=== PATIENT | male | born 1980 | race Caucasian/White ===

== ENCOUNTER 2020-01-13 18:13 | Inpatient (IN) | payer MEDICAID, OTHER ==
[~2020-01-13] VITALS: Ht 162.6 cm; Wt 81.6 kg
[2020-01-13 18:23] VITALS: BP 137/68
[2020-01-13] MEDS ORDERED: ACETAMINOPHEN EXTRA STRENGTH 500 MG TAB PO ONE (18:25)
--- NOTE | 2020-01-13 19:10 | NUR ---
came in with c/o fever, sorethroat, abd cramping for a week, with 10/10 pain level
[2020-01-13] MEDS ORDERED: cefTRIAXone 1,000 MG in LIDOCAINE MPF 1% 2.1 ML IM ONE (19:45)
[2020-01-13] MEDS ORDERED: AZITHROMYCIN 1,000 MG in DEXTROSE 5% 500 ML IV ONE (19:45)
--- NOTE | 2020-01-13 20:00 | NUR ---
all results back and noted by PA and for admission
[2020-01-13 20:14] LABS: BASOPHILS # (AUTO) 0.1 K/uL (0.00-0.22); BASOPHILS % (AUTO) 1.4 % (0.0-2.0); HEMATOCRIT 43.9 % (36-52); HEMOGLOBIN 15.1 g/dL (12.0-18.0); LYMPHOCYTES % (AUTO) 16.5 % (20.5-51.1); MEAN CORPUSCULAR HEMOGLOBIN 30 pg (27-31); MEAN CORPUSCULAR HGB CONC 34 g/dL (33-37); MEAN CORPUSCULAR VOLUME 87.5 fL (80-94); MONOCYTES # (AUTO) 0.4 K/uL (0.8-1.0); MONOCYTES % (AUTO) 6.3 % (1.7-9.3); NEUTROPHILS # (AUTO) 4.8 K/uL (1.8-7.7); NEUTROPHILS % (AUTO) 75.8 % (42.2-75.2); PLATELET COUNT (AUTO) 175 K/uL (140-450); RED BLOOD CELL COUNT(AUTO) 5.02 MIL/uL (4.20-6.10); RED CELL DISTRIBUTION WIDTH 13.2 % (11.6-13.7); WHITE BLOOD COUNT (AUTO) 6.3 K/uL (4.8-10.8)
--- NOTE | 2020-01-13 20:19 | NUR ---
Patient will be admitted to care of dr MAZA. Admited to MS. Will go to room 126 B. Belongings list completed. Report to AIDEN BEGUM
[2020-01-13] MEDS ORDERED: ACETAMINOPHEN 325 MG TAB PO PRN (20:20)
[2020-01-13] MEDS ORDERED: DOCUSATE SODIUM 100 MG GELCAP PO PRN (20:20)
[2020-01-13] MEDS ORDERED: HYDROcodone/APAP 7.5/325 MG 1 TAB PO PRN (20:20)
[2020-01-13] MEDS ORDERED: ONDANSETRON 4 MG/2 ML VIAL IM/IVP PRN (20:20)
[2020-01-13 20:31] LABS: ALBUMIN 3.5 g/dL (3.4-5.0); ANION GAP 15.1 (8-16); CARBON DIOXIDE 24.4 mmol/L (21-32); CREATININE 0.8 mg/dL (0.6-1.3); POTASSIUM 3.5 mmol/L (3.5-5.1); TOTAL BILIRUBIN 0.8 mg/dL (0.0-1.0)
[2020-01-13] MEDS ORDERED: AZITHROMYCIN 500 MG INJ VIAL IV ONE (20:32)
[2020-01-13] MEDS ORDERED: cefTRIAXone 1,000 MG VIAL ONE (20:33)
[2020-01-13 21:18] LABS: PROTHROMBIN TIME 10.3 secs (10.8-13.4)
--- NOTE | 2020-01-13 21:22 | NUR ---
Pt report given to AIDEN BEGUM. Transfer of care at this time.
[2020-01-13 21:30] LABS: FREE T4 (FREE THYROXINE) 1.37 ng/dL (0.76-1.46); MAGNESIUM 2.1 mg/dL (1.8-2.4); PHOSPHORUS 2.5 mg/dL (2.5-4.9); THYROID STIMULATING HORMONE 1.32 uIU/mL (0.34-3.74)
--- NOTE | 2020-01-13 21:30 | NUR ---
ADMITTED 39 YEARS OLD MALE FROM ER VIA WHEELCHAIR. DX: PNEUMONIA CC: FEVER AND COUGH. SEE NURSING ADMISSION ASSESSMENT AND HISTORY. ORIENTED TO ROOM AND UNIT ROUTINES. CARE BOARD STARTED. PLAN OF CARE DISCUSSED WITH PATIENT, VERBALIZED UNDERSTANDING WELL. CALL LIGHT WITHIN REACH.
[2020-01-13] MEDS ORDERED: ALBUTEROL SULFATE/IPRATROPIU 3 ML SOL IH PRN (21:40)
[2020-01-13] MEDS ORDERED: KCL 20 MEQ/WATER INJ PREMIX 200 ML IV PRN (22:35)
[2020-01-13] MEDS: NACL 0.9% 1,000 ML IV SCH (23:19)
--- NOTE | 2020-01-14 00:12 | NUR ---
VITAL SIGNS STABLE. AFEBRILE. CALL LIGHT WITHIN REACH. NO COMPLAINS. NPO AFTER MIDNIGHT FOR ULTRASOUND ABDOMEN IN AM.
[2020-01-14 00:59] VITALS: BP 116/68
[2020-01-14] MEDS: ALBUTEROL SULFATE/IPRATROPIU 3 ML SOL IH SCH ×4 (01:56→19:55)
--- NOTE | 2020-01-14 02:18 | NUR ---
RECEIVED PATIENT ON ROOM AIR,PULSE OX SAT 96%. SCHEDULED BREATHING TREATMENT ADMINISTERED. TOLERATED TX WELL WITHOUT ADVERSE SIDE EFFECTS. PT MADE AWARE OF ORDERED MEDICATION FREQUENCY AND INSTRUCTED TO CALL NEEDED FOR SOB. INCENTIVE SPIROMETRY EDUCATION TAUGHT. PATIENT PERFORMED RETURN DEMONSTRATION WITH GOOD EFFORT. WILL NEED EDUCATIONAL REINFORCEMENT AND ENCOURAGEMENT. NO ACUTE RESPIRATORY DISTRESS NOTED AT THIS TIME. WILL CONTINUE TO MONITOR. Addendum: 01/14/20 at 0222 by Nava Tucker RT PT INSTRUCTED TO OBTAIN SPUTUM SAMPLE IN CUP PROVIDED AT BEDSIDE. PT STATES HE DOES NOT HAVE A COUGH OR ANY SPUTUM AT THIS TIME.
--- NOTE | 2020-01-14 04:30 | NUR ---
ASLEEP. NO COMPLAINS. CALL LIGHT WITHIN REACH.
[2020-01-14] MEDS: NACL 0.9% 1,000 ML IV SCH ×4 (05:44→23:43)
[2020-01-14 06:23] LABS: ANION GAP 13.9 (8-16); CARBON DIOXIDE 25.5 mmol/L (21-32); CREATININE 0.6 mg/dL (0.6-1.3); POTASSIUM 3.4 mmol/L (3.5-5.1)
[2020-01-14 06:52] LABS: BASOPHILS % (AUTO) 0.7 % (0.0-2.0); EOSINOPHILS % (AUTO) 0.2 % (0.0-4.0); HEMATOCRIT 40.2 % (36-52); HEMOGLOBIN 13.6 g/dL (12.0-18.0); LYMPHOCYTES % (AUTO) 19.8 % (20.5-51.1); MEAN CORPUSCULAR HEMOGLOBIN 30 pg (27-31); MEAN CORPUSCULAR HGB CONC 34 g/dL (33-37); MEAN CORPUSCULAR VOLUME 88.1 fL (80-94); MONOCYTES # (AUTO) 0.6 K/uL (0.8-1.0); MONOCYTES % (AUTO) 12.2 % (1.7-9.3); NEUTROPHILS # (AUTO) 3.4 K/uL (1.8-7.7); NEUTROPHILS % (AUTO) 67.1 % (42.2-75.2); PLATELET COUNT (AUTO) 185 K/uL (140-450); RED BLOOD CELL COUNT(AUTO) 4.57 MIL/uL (4.20-6.10); RED CELL DISTRIBUTION WIDTH 12.9 % (11.6-13.7); WHITE BLOOD COUNT (AUTO) 5.1 K/uL (4.8-10.8)
--- NOTE | 2020-01-14 07:15 | NUR ---
ENDORSED CARE AT BEDSIDE WITH CADEN BEGUM, PATIENT IN STABLE CONDITION.
--- NOTE | 2020-01-14 07:16 | NUR ---
RECEIVED REPORT FROM HOIST WORKER NURSE AIDEN FOR CONTINUITY OF CARE. PT IN STABLE CONDITION. RESPIRATIONS EVEN AND UNLABORED. IV INTACT AND PATENT. SAFETY MEASURES IN PLACE. BED IN LOW POSITION. CALL LIGHT AT BEDSIDE. WILL CONTINUE TO MONITOR.
[2020-01-14 08:00] VITALS: BP 117/71
--- NOTE | 2020-01-14 08:22 | NUR ---
PATIENT HAS BEEN SCREENED AND CATEGORIZED MODERATE NUTRITION RISK. PATIENT WILL BE SEEN WITHIN 3-5 DAYS OF ADMISSION. 01/16/20 01/18/[address]
--- NOTE | 2020-01-14 08:30 | NUR ---
US AT BEDSIDE AT THIS TIME. PT TOLERATING WELL.
--- NOTE | 2020-01-14 09:50 | NUR ---
TOLERATED T INCENTIVE SPIROMETRY THERAPY WELL WITHOUT ADVERSE REACTIONS NOTED ENCOURAGED PATIENT (ITALIAN SPEAKING) WITH ACKNOWLEDGEMENT THROUGH FAMILY MEMBER TO USE INCENTIVE SPIROMETRY EVERY 1-2 HOURS WHILE AWAKE
--- NOTE | 2020-01-14 11:34 | NUR ---
TALKING WITH FAMILY AT BEDSIDE. RESPIRATIONS EVEN AND UNLABORED. BED IN LOW POSITION. CALL LIGHT AT BEDSIDE. WILL CONTINUE TO MONITOR.
--- NOTE | 2020-01-14 14:33 | NUR ---
STARTED IV PRN MEDICATION AT THIS TIME. PT TOLERATED WELL.
[2020-01-14 16:00] VITALS: BP 120/79
--- NOTE | 2020-01-14 19:30 | NUR ---
GAVE REPORT TO WOOD MILLING MACHINE OPERATOR NURSE MATTHIAS FOR CONTINUITY OF CARE. PT IN STABLE CONDITION.
--- NOTE | 2020-01-14 19:31 | NUR ---
RECEIVED PT IN STABLE CONDITION FROM AM NURSE. MED SURG PT. AWAKE,ALERT AND ORIENTED X4. WITH FAMILY AT BEDSIDE. NO C/O ANY DISCOMFORT NOR PAIN NOTED. HAS IVF INFUSING WELL ON THE LT AC G#20 .CLEAR AND PATENT. PLAN OF CARE DISCUSSED AND VERBALIZED UNDERSTANDING. BED ON LOW POSITION. SIDE RAILS UP X2. CALL LIGHT WITHIN EASY REACH. WILL CONTINUE TO MONITOR.
[2020-01-14] MEDS ORDERED: AZITHROMYCIN 250 MG TAB PO SCH (21:00)
--- NOTE | 2020-01-14 21:00 | NUR ---
NEED URINE SPECIMEN FOR UA AND UDS. CONTAINER PROVIDED. INSTRUCTED TO SAVE THE URINE.
--- NOTE | 2020-01-14 23:40 | NUR ---
URINE SPECIMEN COLLECTED AND SEND TO LAB.
[2020-01-15] VITALS: BP 125/75
--- NOTE | 2020-01-15 01:00 | NUR ---
NEEED ALSO SPUTUM SPECIMEN FOR CULTURE. SPECIMEN BOTTLE GIVEN TO PT. INSTRUCTED .
[2020-01-15] MEDS: ALBUTEROL SULFATE/IPRATROPIU 3 ML SOL IH SCH ×3 (01:01→18:47)
[2020-01-15 01:03] LABS: APPEARANCE,URINE CLEAR (CLEAR); BILIRUBIN,URINE NEGATIVE (NEGATIVE); BLOOD, URINE NEGATIVE (NEGATIVE); COLOR,URINE YELLOW (YELLOW); LEUKOCYTE ESTERASE ,URINE NEGATIVE (NEGATIVE); NITRITE, URINE NEGATIVE (NEGATIVE); PH,URINE 6.5 (5.0-9.0); UGLUCOSE NEGATIVE (NEGATIVE)
[2020-01-15 01:17] LABS: BARBITURATE, URINE NEG. ng/ml (NEG <=200); BENZODIAZEPINE, URINE NEG. ng/mL (NEG <=200); CANNABINOID, URINE NEG. ng/mL (NEG <=50); COCAINE, URINE NEG. ng/mL (NEG <=300); OPIATE, URINE NEG. ng/mL (NEG <=2000); PHENCYCLIDINE SCREEN,URINE NEG. ng/mL (NEG <=25)
--- NOTE | 2020-01-15 03:30 | NUR ---
MADE ROUNDS .PT IS AWAKE. NO C/O ANY DISCOMFORT NOTED.
[2020-01-15 06:11] LABS: HEPATITIS A ANTIBODY IGM Negative (Negative); HEPATITIS B CORE AB TOTAL Negative (Negative); HEPATITIS B SURFACE ANTIBODY Non Reactive (.); HEPATITIS B SURFACE ANTIGEN Negative (Negative)
[2020-01-15 06:17] LABS: BASOPHILS % (AUTO) 0.7 % (0.0-2.0); EOSINOPHILS % (AUTO) 0.6 % (0.0-4.0); HEMATOCRIT 39.1 % (36-52); HEMOGLOBIN 13.1 g/dL (12.0-18.0); LYMPHOCYTES # (AUTO) 1.2 K/uL (2.0-11.5); LYMPHOCYTES % (AUTO) 28.6 % (20.5-51.1); MEAN CORPUSCULAR HEMOGLOBIN 30 pg (27-31); MEAN CORPUSCULAR HGB CONC 34 g/dL (33-37); MEAN CORPUSCULAR VOLUME 89.1 fL (80-94); MONOCYTES # (AUTO) 0.5 K/uL (0.8-1.0); NEUTROPHILS # (AUTO) 2.4 K/uL (1.8-7.7); NEUTROPHILS % (AUTO) 58.1 % (42.2-75.2); PLATELET COUNT (AUTO) 202 K/uL (140-450); RED BLOOD CELL COUNT(AUTO) 4.39 MIL/uL (4.20-6.10); RED CELL DISTRIBUTION WIDTH 13.1 % (11.6-13.7); WHITE BLOOD COUNT (AUTO) 4.1 K/uL (4.8-10.8)
[2020-01-15 06:26] LABS: ANION GAP 13.4 (8-16); CARBON DIOXIDE 25.4 mmol/L (21-32); CREATININE 0.6 mg/dL (0.6-1.3); POTASSIUM 3.8 mmol/L (3.5-5.1)
--- NOTE | 2020-01-15 07:20 | NUR ---
ENDORSED PT IN STABLE CONDITION TO AM NURSE.
--- NOTE | 2020-01-15 07:30 | NUR ---
RECEIVED REPORT FROM NIGHT NURSE, PT IS STABLE, NO SIGNS OF DISTRESS NOTED, PT HAS LAC 20G NS AT 120ML, PT RESTING IN BED, INTRODUCE SELF, UPDATE WHITEBOARD, CALL LIGHT WITHIN REACH. Addendum: 01/15/20 at 1513 by Tonia Garcia RN IV RUNNING AT 60ML/H
[2020-01-15 08:00] VITALS: BP 125/74
[2020-01-15] MEDS: AZITHROMYCIN 250 MG TAB PO SCH (08:46)
[2020-01-15] MEDS: NACL 0.9% 1,000 ML IV SCH ×2 (08:48→20:32)
--- NOTE | 2020-01-15 08:49 | NUR ---
GAVE PT ORDERED MEDICATION, EDUCATION ON MEDICATION GIVEN, PT VERBALIZED UNDERSTANDING, PT IS STABLE, NO SIGNS OF DISTRESS NOTED, CALL LIGHT WITHIN REACH.
--- NOTE | 2020-01-15 11:00 | NUR ---
PT IS STABLE, VISITING WITH AND SON, ALL NEED MET, CALL LIGHT WITHIN REACH.
--- NOTE | 2020-01-15 13:00 | NUR ---
PT RECEIVING A BREATHING TREAT, PT IS STABLE, CALL LIGHT WITHIN REACH, FAMILY AT BEDSIDE. Addendum: 01/15/20 at 1515 by Tonia Garcia RN WRONG TIME.
--- NOTE | 2020-01-15 13:00 | NUR ---
PT IS STABLE, NO SIGNS OF DISTRESS NOTED, CALL LIGHT WITHIN REACH.
--- NOTE | 2020-01-15 15:00 | NUR ---
PT RECEIVING A BREATHING TREAT, PT IS STABLE, CALL LIGHT WITHIN REACH, FAMILY AT BEDSIDE.
[2020-01-15 16:00] VITALS: BP 109/64
--- NOTE | 2020-01-15 19:17 | NUR ---
GAVE REPORT TO NIGHT NURSE FOR CONTINUITY OF CARE, PT IS STABLE.
--- NOTE | 2020-01-15 19:18 | NUR ---
RECEIVED BEDSIDE REPORT FROM DAY RN. PT IS AAOX4 IS [place] AND FRENCH SPEAKING. RESPIRATIONS ARE EQUAL AND UNLABORED ON ROOM AIR. DX CÉSAR PNA PT IS ON IV ANTIBIOTICS. IV ON LAC 20G. SKIN INTACT. PT IS AMBULATORY WITHOUT ASSIST. IS AT BEDSIDE. POC DISCUSSED WITH PT AND FAMILY. CALL LIGHT IS WITHIN REACH. WILL CONTINUE TO MONITOR.
--- NOTE | 2020-01-15 20:00 | NUR ---
PATIENT IS STABLE. C/C HEADACHE 05/05 ADMINISTERED NORCO. IVPB ROCEPHIN NOW INFUSING PER ORDERS. EDUCATED PT TO USE IS 10X EVERY HOUR WHEN AWAKE, VERBALIZED UNDERSTANDING. ENCOURAGE PT TO WALK. ALL NEEDS MET AT THIS TIME. CALL LIGHT IS WITHIN REACH.
--- NOTE | 2020-01-15 22:00 | NUR ---
PATIENT IS RESTING COMFORTABLY IN BED. NO S/S OF DISTRESS. CALL LIGHT IS WITHIN REACH.
--- NOTE | 2020-01-15 23:00 | NUR ---
PATIENT IS SLEEPING COMFORTABLY IN BED WITH EYES CLOSED. SAFETY MEASURES ARE IN PLACE. CALL LIGHT IS WITHIN REACH. WILL CONTINUE TO MONITOR.
[2020-01-16] VITALS: BP 124/82
--- NOTE | 2020-01-16 | NUR ---
VITAL SIGNS ARE WITHIN NORMAL LIMITS. ALL NEEDS MET AT THIS TIME. CALL LIGHT IS WITHIN REACH.
[2020-01-16] MEDS: ALBUTEROL SULFATE/IPRATROPIU 3 ML SOL IH SCH ×2 (00:50→07:16)
[2020-01-16] MEDS ORDERED: INFLUENZA VACCINE QUAD 0.5 ML SYR IMVAC PRN (01:55)
--- NOTE | 2020-01-16 02:45 | NUR ---
PT IS SLEEPING COMFORTABLY IN BED WITH EYES CLOSED. CHEST RISE AND FALL. ALL SAFETY MEASURES ARE IN PLACE. WILL CONTINUE TO MONITOR.
--- NOTE | 2020-01-16 05:36 | NUR ---
PATIENT IS AWAKE LAYING COMFORTABLY IN BED WATCHING TV. DENIES ANY DISCOMFORT AT THIS TIME. ALL NEEDS MET. CALL LIGHT IS WITHIN REACH.
[2020-01-16 06:10] LABS: BASOPHILS % (AUTO) 0.6 % (0.0-2.0); EOSINOPHILS % (AUTO) 0.9 % (0.0-4.0); HEMOGLOBIN 12.8 g/dL (12.0-18.0); LYMPHOCYTES # (AUTO) 1.3 K/uL (2.0-11.5); LYMPHOCYTES % (AUTO) 26.3 % (20.5-51.1); MEAN CORPUSCULAR HEMOGLOBIN 30 pg (27-31); MEAN CORPUSCULAR HGB CONC 34 g/dL (33-37); MEAN CORPUSCULAR VOLUME 88.3 fL (80-94); MONOCYTES # (AUTO) 0.5 K/uL (0.8-1.0); NEUTROPHILS # (AUTO) 3.2 K/uL (1.8-7.7); NEUTROPHILS % (AUTO) 62.2 % (42.2-75.2); PLATELET COUNT (AUTO) 259 K/uL (140-450); RED CELL DISTRIBUTION WIDTH 13.1 % (11.6-13.7); WHITE BLOOD COUNT (AUTO) 5.1 K/uL (4.8-10.8)
[2020-01-16 06:51] LABS: ANION GAP 13.1 (8-16); CARBON DIOXIDE 24.6 mmol/L (21-32); CREATININE 0.6 mg/dL (0.6-1.3); POTASSIUM 3.7 mmol/L (3.5-5.1)
--- NOTE | 2020-01-16 07:21 | NUR ---
GAVE BEDSIDE REPORT TO DAY RN. PT ENDORSED IN STABLE CONDITION.
--- NOTE | 2020-01-16 07:30 | NUR ---
RECEIVED BEDSIDE REPORT FROM NIGHT NURSE. PATIENT IN BED, AAOX4. RT AT BEDSIDE. INTRODUCED SELF. NO S/S OF DISTRESS NOTED. IV INTACT AND PATENT TO RIGHT AC. BED IN LOW POSITION. SAFETY MEASURES IN PLACE.
[2020-01-16] MEDS ORDERED: LORA10TA19 PO (07:54)
[2020-01-16] MEDS ORDERED: ALBU0.0912 IH (07:54)
[2020-01-16 08:00] VITALS: BP 139/79
[2020-01-16] MEDS ORDERED: LEVO750T2 PO ×2 (08:57→10:12)
[2020-01-16] MEDS ORDERED: BENZ-196 PO (09:16)
[2020-01-16] MEDS: AZITHROMYCIN 250 MG TAB PO SCH (09:29)
[2020-01-16] MEDS ORDERED: guaiFENesin 20 MG/ML UDC PO SCH (09:30)
--- NOTE | 2020-01-16 09:30 | NUR ---
PATIENT IS SITTING ON THE SIDE OF THE BED. AAOX4. NO S/S OF DISTRESS NOTED. FAMILY AT BEDSIDE.
--- NOTE | 2020-01-16 11:20 | NUR ---
DISCHARGE PLANNING: THIS IS A 39 Y/O MALE PATIENT FROM HOME, WHO CAME IN DUE TO WORSEN COUGH, SORE THROAT X 1 WEEK. NO PASET MEDICAL AND SURGICAL HISTORY. INITIAL DIAGNOSIS OF BILATERAL PNEUMONIA. CURRENT LABS INCLUDE WBC 5.1, H/H 12.8/38.0, NA/K 140/3.7, BUN/CREA 10/0.6. RPT CXR SHOWED BORDERLINE CARDIOMEGALY AND SUSPECTED TRACE LEFT PLEEURAL EFFUSION. ON ROCEPHINE IV. FOR DC HOME TODAY NO NEEDS
--- NOTE | 2020-01-16 11:40 | NUR ---
PATIENT DISCHARGED TO HOME PICKED UP BY SISTER VIA PRIVATE VEHICLE. AMBULATED TO THE CAR TO THE LOBBY. DISCHARGE INSTRUCTIONS PAPERWORK DISCUSSED WITH ENVIRONMENTAL SCIENTISTS # [id number] AND ALL BELONGINGS SENT TO PATIENT. IV REMOVED, CANNULA INTACT AND ALL ID BANDS REMOVED. PATIENT IN STABLE CONDITION. PATIENT RECEIVED FLU VACCINE TODAY.
== END 2020-01-16 11:40 | disposition home or self-care (01) | DRG 193 ==
LOC: MED 18:13 → MMU 20:19
PROVIDERS: ADMIT General Practice; ATTEND General Practice
DX: J18.9 Pneumonia, unspecified organism (principal); K85.90 Acute pancreatitis without necrosis or infection, unspecified; E87.1 Hypo-osmolality and hyponatremia; J90 Pleural effusion, not elsewhere classified; Z23 Encounter for immunization; R74.0 Nonspecific elevation of levels of transaminase and lactic acid dehydrogenase [LDH]; I51.7 Cardiomegaly; K76.0 Fatty (change of) liver, not elsewhere classified; K74.60 Unspecified cirrhosis of liver; E87.6 Hypokalemia
CPT/HCPCS: 36415; 71045; 76604; 76700; 80048; 80053; 80305; 81003; 82140; 82150; 83036; 83605; 83690; 83735; 83880; 84100; 84436; 84439; 84443; 84479; 84484; 85025; 85610; 85730; 86704; 86706; 86708; 86709; 86803; 87040; 87070; 87081; 87205; 87340; 87804; 94640; 96365; 96375; 99285; J0456; J0696; J3480; J7030; J7060; J7620; Q0092